=== PATIENT | male | born 1980 | race Caucasian/White ===

== ENCOUNTER → 2021-07-01 | Outpatient (CLI) | payer MEDICARE, SELFPAY | END | disposition home or self-care (01) | LOC: LABSPEC 13:25 | PROVIDERS: Visit Provider Physician Assistant Surgical | DX: U07.1 COVID-19 (principal) | CPT/HCPCS: 87635; U0005; U0003 ==

== ENCOUNTER 2021-08-13 07:48 | Outpatient (RCR) | payer SELFPAY ==
--- NOTE | 2021-08-13 09:47 | HP.PTEVAL ---
Patient's Visit Information GILDARDO RANDOLPH is a 40 year old M referred to Physical Therapy by Self Referred with a diagnosis of N/A. Date of Evaluation: 08/13/21 Physical Therapist: Len Duran, PT, ATC - Visit Plan Frequency: 1x/Week Duration: 2 Weeks Plan: Pt to continue with HEP of B LE stretching x 1 month. Then follow up for recheck and core strengthening HEP, or discharge - Subjective Pt reports his R hip has been sore for over 10 weeks. Pt reports he is an avid runner and notes he is not able to run at this time secondary to pain. Pt reports he has been treating it like it is a TFL injury, but he has had no relief at this time. Pt reports the pain is located on the lateral aspect of his R hip, but notes the pain will radiate to his groin and to the posterior aspect of his hip in the glute region. Pt denies LBP at this time. No diagnostic tests at this time. Pt notes he doesnt have a primary care physician at this time. No sleep difficulty secondary to pain. Pt notes he want to return to ultra marathons. Pt reports his hip doesnt click/pop/lock up/or give out, although it did give out after one long race on one occasion a while ago. Pt reports his pain ranges from 0/10 at rest, 4/10 at worst - Pain R hip Pain Intensity (Out of 10): 0 Pain Intensity Range: 4 - Objective Neuro: B LE sensation is WNL to light touch. B patellar reflex= 2/3. Palpation: Pt is tender along the hip flexor region, IT band, and gluteal regions. ROM: B LE's are WFL. MMT: B LE's are grossly 5/5 throughout. Special tests: extreme muscle tight ness in LE's. No pos tests at this time - Goals Goal 1:: I with HEP after one visit Goal Time Frame: 4-6 Weeks - Rehabilitation Potential Physical Therapy Diagnosis: Pt has R hip pain and limitations with running secondary to R hip flexor and gluteal strain Rehabilitation Potential: Good - Anticipated Interventions Patient/Client Instruction: Educate patient on: Condition, Plan of Care For the Purpose of:: To improve self management Therapeutic Exercise to Include: Strength training, Endurance training, Flexibilty training, Dynamic Lumbar Stabilization For the Purpose of:: To decrease pain, To increase ROM, To improve muscle performance and motor function Cryotherapy (ice pack, ice massage): Yes For the Purpose of:: To decrease pain Thank you for the opportunity to evaluate your patient. For Medicare and Medicare HMO plans, please review the plan of care and approve it. It will need to be FAXED BACK to us at [phone] for Medicare purposes. For Medicare only, by signing this I certify the plan of care. Please let me know if there are questions or concerns regarding this plan of care. Physician Signature: Date:
--- NOTE | 2022-01-03 13:02 | HP.PT.NRP ---
GILDARDO RANDOLPH was seen in my office for initial evaluation on 08/13/21. The following Plan of Care was established for this patient: Initial Frequency: 1x/Week Initial Duration: 2 Weeks Patient/Client Instruction: Educate patient on: Condition, Plan of Care For the Purpose of:: To improve self management Therapeutic Exercise to Include: Strength training, Endurance training, Flexibilty training, Dynamic Lumbar Stabilization For the Purpose of:: To decrease pain, To increase ROM, To improve muscle performance and motor function Cryotherapy (ice pack, ice massage): Yes For the Purpose of:: To decrease pain This patient was last seen in our office . Pertinent comments regarding their Physical therapy will appear below: Pt was treated for 1 PT visit for hip pain through the date of 08/13/21. Pt has not returned through todays date and is discontinued at this time At this point I will be discontinuing this patient from physical therapy. I would be happy to see this patient again in the future if found appropriate by the physician. Thank you! Len Duran, PT, ATC Balance/Gait/Functional tests - Balance/Special Test Scores Lower Extremity Functional Score: 62
== END 2021-08-13 19:00 | disposition home or self-care (01) ==
LOC: PT 07:48
DX: M25.551 Pain in right hip (principal)
CPT/HCPCS: 97161

== ENCOUNTER → 2024-10-20 | Outpatient (CLI) | payer SELFPAY ==
[2024-10-20 13:50] LABS: ALB/GLOB Ratio 1.7 RATIO (0.9-2.4); AST(SGOT) 21 U/L (<=37); Alanine Aminotransfer ALT/SGPT 27 U/L (<=46); Albumin, Serum 4.8 g/dL (3.5-5.0); Alkaline Phosphatase 118 U/L (40-129); Anion Gap 12 (5-15); BUN 20 mg/dL (4-19); BUN/Creat Ratio 21.5 RATIO (10-20); Carbon Dioxide 25.9 mmol/L (21.0-32.0); Chloride 100 mmol/L (98-108); Cholesterol 176 mg/dL (<=200); Creatinine, Serum 0.93 mg/dL (0.70-1.20); EST Glomerular Filtration Rate 104 (>60); Globulin 2.9 g/dL (2.2-4.2); Glucose 97 mg/dL (70-99); High Density Lipoprotein 50 mg/dL; Low Density Lipoprotein Calc. 107 mg/dL; Potassium 4.2 mmol/L (3.3-5.1); Protein, Total 7.7 g/dL (5.9-8.4); Sodium Level 138 mmol/L (133-145); Total Bilirubin 0.68 mg/dL (0.00-1.30); Triglycerides 96 mg/dL; Very Low Density Lipoprotein 19 mg/dL (5-40); cholesterol:hdl ratio screen 3.53
== END | disposition home or self-care (01) ==
LOC: MFPLAB 10:37
PROVIDERS: PCP Family Medicine; Referring Provider Family Medicine; Visit Provider Family Medicine
DX: Z13.1 Encounter for screening for diabetes mellitus (principal); Z13.220 Encounter for screening for lipoid disorders
CPT/HCPCS: 36415; 80053; 80061